=== PATIENT | male | born 1980 | race Hispanic/Latino ===

== ENCOUNTER 2021-04-29 17:42 | Emergency (ER) | payer SELFPAY ==
[2021-04-29 18:35] LABS: Absolute Lymphocytes (CBC) 1.1 K/uL (0.7-4.9); Basophils % 0.4 % (0-1.3); Lymphocytes % 12.7 % (15.3-44.8); MPV 8.7 fL (7.6-11.3); RBC Red Blood Cell Count 5.35 M/uL (4.33-5.43)
[2021-04-29 18:36] LABS: Protime INR 1.08
[2021-04-29 18:46] LABS: ALT/SGPT 65 U/L (12-78); AST/SGOT 26 U/L (15-37); Albumin 4.4 g/dL (3.4-5.0); Alkaline Phosphatase 121 U/L (45-117); BUN Blood Urea Nitrogen 19 mg/dL (7-18); Bicarbonate 28 mmol/L (21-32); Bilirubin Direct 0.3 mg/dL (0-0.2); Bilirubin Total 0.9 mg/dL (0.2-1.0); Glucose Level 111 mg/dL (74-106); Magnesium 2.5 mg/dL (1.8-2.4); NT PRO-BNP 14 pg/mL (<125); Potassium 3.7 mmol/L (3.5-5.1); Protein, Total 8.6 g/dL (6.4-8.2); Sodium Level 141 mmol/L (136-145); Troponin (Emerg Dept Use Only) < 0.02 ng/mL (0.0-0.045)
[2021-04-29] MEDS ORDERED: NA CHLORIDE 0.9% 1,000 ML ONE ×2 (18:56→20:28)
[2021-04-29] MEDS ORDERED: LORazepam 2 MG/ML VIAL ONE (18:56)
--- NOTE | 2021-04-29 19:15 | RAD REPORT ---
EXAM DESCRIPTION: CT - Head Brain Wo Cont - 04/29/2021 6:46 pm CLINICAL HISTORY: DIZZINESS COMPARISON: No comparisons TECHNIQUE: Axial 5 mm thick images of the head were obtained without IV contrast. All CT scans are performed using dose optimization technique as appropriate and may include automated exposure control or mA/KV adjustment according to patient size. FINDINGS: No intracranial hemorrhage, mass, edema or shift of mid-line structures. No acute infarcti on changes seen. No abnormal extra-axial fluid collections. Ventricles are normal. Mastoid air cells and visualized portions of the paranasal sinuses are clear. No acute bony findings. IMPRESSION: Negative non-contrast CT head examination.
--- NOTE | 2021-04-29 19:33 | RAD REPORT ---
EXAM DESCRIPTION: RAD - Chest Single View - 04/29/2021 7:11 pm CLINICAL HISTORY: CHEST PAIN COMPARISON: None TECHNIQUE: AP portable chest image was obtained 04/29/2021 7:11 pm . FINDINGS: Lungs are clear. Heart and vasculature are normal. No measurable pleural effusion and no p neumothorax. No acute bony abnormality seen. No acute aortic findings suspected. IMPRESSION: No acute cardiopulmonary process.
[2021-04-29] MEDS ORDERED: ASPIRIN 81 MG CHEWABLE TABLET ONE (21:48)
[2021-04-29 22:02] LABS: Barbiturates NEGATIVE (NEGATIVE); Benzodiazepines NEGATIVE (NEGATIVE); Cocaine POSITIVE (NEGATIVE); METHAMPHETAM POSITIVE (NEGATIVE); Methadone NEGATIVE (NEGATIVE); Opiates NEGATIVE (NEGATIVE); Phencyclidine NEGATIVE (NEGATIVE); THC Cannibis NEGATIVE (NEGATIVE)
--- NOTE | 2021-04-29 22:24 | EDPHYS ---
Physician Documentation [facility] Name: Adeel Ramirez Age: 41 yrs Sex: Male : 1980 Arrival Date: 04/29/2021 Time: 17:46 Bed 20 Private MD: ED Physician Huy Bullock HPI: 04/29 18:15 This 41 yrs old Male presents to ER via Ambulatory with complaints of cp Numbness, Dizziness, Blurred Vision, Breathing Difficulty. 18:15 The patient or guardian reports chest pain that is located primarily in the anterior cp chest wall, left. 18:15 Onset: 2 hour(s) ago, and improved just prior to arrival. The pain does not radiate. cp Associated signs and symptoms: Pertinent positives: diaphoresis, dizziness, shortness of breath, left hand tingling, Pertinent negatives: abdominal pain, lower extremity pain, lower extremity swelling, vomiting. The chest pain is described as a pressure. Duration: The patient or guardian reports a single episode, that is now resolved. Patient admits to using cocaine 3 days ago. Historical: - Allergies: 18:01 No Known Allergies; ca1 - Home Meds: 18:01 None [Active]; ca1 - PMHx: 18:01 None; ca1 - PSHx: 18:01 None; ca1 - Immunization history:: Client reports having NOT received the Covid vaccine. - Social history:: Smoking status: Patient reports the use of cigarette tobacco products, smokes one-half pack cigarettes per day. ROS: 18:20 Constitutional: Negative for body aches, chills, fever, poor PO intake. cp 18:20 Eyes: Negative for injury, pain, redness, and discharge. cp 18:20 ENT: Negative for ear pain, sore throat, difficulty swallowing, difficulty handling secretions. 18:20 Cardiovascular: Positive for chest pain, palpitations, Negative for edema. 18:20 Respiratory: Positive for shortness of breath, Negative for cough, wheezing. 18:20 Abdomen/GI: Negative for abdominal pain, nausea, vomiting, and diarrhea, black/tarry stool, rectal bleeding. 18:20 Back: Negative for pain at rest, pain with movement. 18:20 Neuro: Positive for dizziness, numbness, tingling, of the left hand and left foot, Negative for altered mental status, headache, syncope, weakness. 18:20 All other systems are negative. Exam: 18:05 ECG was reviewed by the Attending Physician. cp 18:25 Constitutional: The patient appears in no acute distress, alert, awake, cp non-diaphoretic, non-toxic, well developed, well nourished. 18:25 Head/Face: Normocephalic, atraumatic. cp 18:25 Eyes: Periorbital structures: appear normal, Pupils: equal, round, and reactive to light and accomodation, Extraocular movements: intact throughout, Conjunctiva: normal, no exudate, no injection, Sclera: no appreciated abnormality, Lids and lashes: appear normal, bilaterally. 18:25 ENT: External ear(s): are unremarkable, Nose: is normal, Mouth: Lips: moist, Oral mucosa: moist, Posterior pharynx: Airway: no evidence of obstruction, patent. 18:25 Neck: ROM/movement: is normal, is supple, without pain, no range of motions limitations. 18:25 Chest/axilla: Inspection: normal, Palpation: is normal, no crepitus, no tenderness. 18:25 Cardiovascular: Rate: tachycardic, Rhythm: regular, Heart sounds: murmur, not appreciated, Edema: is not appreciated, JVD: is not appreciated. 18:25 Respiratory: the patient does not display signs of respiratory distress, Respirations: normal, no use of accessory muscles, no retractions, labored breathing, is not present, Breath sounds: are clear throughout, no decreased breath sounds, no stridor, no wheezing. 18:25 Abdomen/GI: Inspection: abdomen appears normal, Palpation: abdomen is soft and non-tender, in all quadrants. 18:25 Neuro: Orientation: to person, place \T\ time. Mentation: is normal, Motor: moves all fours, strength is normal, Sensation: tingling, that is mild, of the left hand and left foot. Vital Signs: 17:57 BP 143 / 103; Pulse 132; Resp 20 S; Temp 98.3(TE); Pulse Ox 100% on R/A; Weight 72.57 ca1 kg (R); Height 5 ft. 5 in. (165.10 cm) (R); Pain 8/10; 18:44 BP 158 / 116; Pulse 116; Resp 24; Pulse Ox 99% ; bp 22:52 BP 148 / 78; Pulse 99; Resp 16; Pulse Ox 99% on R/A; jm8 17:57 Body Mass Index 26.63 (72.57 kg, 165.10 cm) ca1 MDM: 18:12 Patient medically screened. cp 18:30 Differential diagnosis: abnormal EKG, acute myocardial infarction, acute pericarditis, cp anxiety, chest wall pain, pleurisy, pneumonia, pneumothorax, pulmonary embolus, stable angina, unstable angina. 22:20 The patient was given aspirin in the Emergency Department. cp 22:20 Data reviewed: vital signs, nurses notes, lab test result(s), EKG, radiologic studies, cp plain films. Test interpretation: by ED physician or midlevel provider: ECG, plain radiologic studies. ED course: VSS. EKG negative for STEMI, initial and repeat troponin negative. Will discharge to home for continued monitoring. 04/29 18:07 Order name: Basic Metabolic Panel; Complete Time: 18:49 ca1 04/29 18:49 Interpretation: Normal except: GLUC 111; BUN 19; GFR 69. cp 04/29 18:07 Order name: CBC with Diff; Complete Time: 18:49 ca1 04/29 19:50 Interpretation: Normal except: NAREN% 81.1; LYM% 12.7. cp 04/29 18:07 Order name: LFT's; Complete Time: 18:49 ca1 04/29 22:18 Interpretation: Normal except: ALK 121; BILID 0.3; TP 8.6; GLOB 4.2; A/G 1.0. cp 04/29 18:07 Order name: Magnesium; Complete Time: 18:49 ca1 04/29 18:07 Order name: NT PRO-BNP; Complete Time: 18:49 ca1 04/29 18:07 Order name: PT-INR; Complete Time: 19:50 ca1 04/29 18:07 Order name: Troponin (emerg Dept Use Only); Complete Time: 18:49 ca1 04/29 18:07 Order name: XRAY Chest (1 view); Complete Time: 19:50 ca1 04/29 18:18 Order name: UDS cp 04/29 18:19 Order name: Urine Drug Screen; Complete Time: 22:18 EDMS 04/29 22:18 Interpretation: Normal except: SOFIA POSITIVE; METHAMPHETAMINE POSITIVE. cp 04/29 18:21 Order name: CT Head Brain wo Cont; Complete Time: 19:50 cp 04/29 21:12 Order name: Troponin I; Complete Time: 22:18 cp 04/29 18:07 Order name: EKG; Complete Time: 18:08 ca1 04/29 18:07 Order name: Cardiac monitoring; Complete Time: 18:08 ca1 04/29 18:07 Order name: EKG - Nurse/Tech; Complete Time: 18:07 ca1 04/29 18:07 Order name: IV Saline Lock; Complete Time: 18:08 ca1 04/29 18:07 Order name: Labs collected and sent; Complete Time: 18:08 ca1 04/29 18:07 Order name: O2 Per Protocol; Complete Time: 18:07 ca1 04/29 18:07 Order name: O2 Sat Monitoring; Complete Time: 18:07 ca1 EC:05 Rate is 133 beats/min. Rhythm is regular. ID interval is normal. QRS interval is cp normal. QT interval is normal. T waves are Inverted in leads III, aVR. Interpreted by me. Reviewed by me. Administered Medications: 18:30 Drug: NS 0.9% 1000 ml Route: IV; Rate: 1 bolus; Site: right antecubital; bp 20:10 Follow up: IV Status: Completed infusion [facility] 22:53 Follow up: IV Status: Completed infusion [facility] 18:30 Drug: Ativan (LORazepam) 0.5 mg Route: IVP; Site: right antecubital; bp 18:48 Follow up: Response: No adverse reaction bp 20:10 Drug: NS 0.9% 1000 ml Route: IV; Rate: 1 bolus; Site: right antecubital; jm8 22:53 Follow up: IV Status: Completed infusion 8 21:32 Drug: Aspirin Chewable Tablet 324 mg Route: PO; jm8 22:52 Follow up: Response: No adverse reaction 8 Disposition: 04/30 06:59 Co-signature as Attending Physician, Huy uBllock MD. rn Disposition Summary: 04/29/21 22:23 Discharge Ordered Location: Home cp Problem: new cp Symptoms: have improved cp Condition: Stable cp Diagnosis - Cocaine abuse cp - Adverse effect of amphetamines cp Followup: cp - With: Private Physician - When: 1 - 2 days - Reason: Worsening of condition Discharge Instructions: - Discharge Summary Sheet cp - Cocaine Use Disorder cp - Methamphetamines Use Disorder cp - Aspirin and Your Heart cp Forms: - Medication Reconciliation Form cp - Thank You Letter cp - Antibiotic Education cp - Prescription Opioid Use cp Signatures: Dispatcher [employer] EDHuy Storey MD MD rn Randolph Andrews PA PA cp Gael Hoff, RN RN bp Nataliya Torres RN RN [facility] Max Cho RN RN jm8
--- NOTE | 2021-04-29 22:24 | ER ---
Nurse's Notes [facility] Name: Adeel Ramirez Age: 41 yrs Sex: Male : 1980 Arrival Date: 04/29/2021 Time: 17:46 Bed 20 Private MD: Diagnosis: Cocaine abuse;Adverse effect of amphetamines Presentation: 04/29 17:57 Chief complaint: Patient states: Pt appears anxious. Numbness on L leg and L arm ca1 started at 1030 this morning. Still feels numb a little bit. 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 VAN negative. No slurring of speech. No facial droop. Coronavirus screen: Client denies travel out of the [place] in the last 14 days. shortness of breath, Client presents with at least one sign or symptom that may indicate coronavirus-19. Standard/surgical mask placed on the client. Provider contacted for isolation considerations. Ebola Screen: Patient negative for fever greater than or equal to 101.5 degrees Fahrenheit, and additional compatible Ebola Virus Disease symptoms Patient denies exposure to infectious person. Patient denies travel to an Ebola-affected area in the 21 days before illness onset. No symptoms or risks identified at this time. Initial Sepsis Screen: Does the patient meet any 2 criteria? No. Patient's initial sepsis screen is negative. Does the patient have a suspected source of infection? No. Patient's initial sepsis screen is negative. Risk Assessment: Do you want to hurt yourself or someone else? Patient reports no desire to harm self or others. Onset of symptoms was April 29, 2021. 17:57 Method Of Arrival: Ambulatory ca1 17:57 Acuity: KEMI 2 ca1 Triage Assessment: 18:40 General: Appears in no apparent distress. comfortable, Behavior is cooperative, bp appropriate for age, anxious. Pain: Denies pain. EENT: No deficits noted. Neuro: Reports dizziness, numbness. Cardiovascular: Rhythm is sinus tachycardia. Respiratory: Reports shortness of breath Onset: The symptoms/episode began/occurred at an unknown time. the patient reports symptoms have resolved. GI: : No signs and/or symptoms were reported regarding the genitourinary system. Derm: No deficits noted. Musculoskeletal: No signs and/or symptoms reported regarding the musculoskeletal system. Historical: - Allergies: 18:01 No Known Allergies; ca1 - Home Meds: 18:01 None [Active]; ca1 - PMHx: 18:01 None; ca1 - PSHx: 18:01 None; ca1 - Immunization history:: Client reports having NOT received the Covid vaccine. - Social history:: Smoking status: Patient reports the use of cigarette tobacco products, smokes one-half pack cigarettes per day. Screenin:30 Abuse screen: Denies threats or abuse. Denies injuries from another. Nutritional bp screening: No deficits noted. Tuberculosis screening: No symptoms or risk factors identified. Fall Risk None identified. Assessment: 18:40 Reassessment: PT TO CT. bp 20:00 Reassessment: Patient appears in no apparent distress at this time. jm8 22:00 Reassessment: Patient appears in no apparent distress at this time. No changes from jm8 previously documented assessment. Patient and/or family updated on plan of care and expected duration. Pain level reassessed. 22:51 Respiratory: Airway is patent Respiratory effort is even, unlabored, Breath sounds are jm8 clear. Vital Signs: 17:57 BP 143 / 103; Pulse 132; Resp 20 S; Temp 98.3(TE); Pulse Ox 100% on R/A; Weight 72.57 ca1 kg (R); Height 5 ft. 5 in. (165.10 cm) (R); Pain 8/10; 18:44 BP 158 / 116; Pulse 116; Resp 24; Pulse Ox 99% ; bp 22:52 BP 148 / 78; Pulse 99; Resp 16; Pulse Ox 99% on R/A; jm8 17:57 Body Mass Index 26.63 (72.57 kg, 165.10 cm) ca1 ED Course: 17:46 Patient arrived in ED. rg4 18:00 Triage completed. ca1 18:01 Arm band placed on right wrist. ca1 18:07 Randolph Andrews PA is PHCP. cp 18:07 Huy Bullock MD is Attending Physician. cp 18:08 Gael Hoff, LUPE is Primary Nurse. bp 18:08 Initial lab(s) drawn, by me, sent to lab. Inserted saline lock: 20 gauge in right ca1 antecubital area, using aseptic technique. Blood collected. 18:22 TRANSLATED FOR PROVIDER AND PATIENT CZECH / ICELANDIC. [facility] 18:24 Patient has correct armband on for positive identification. Bed in low position. Call mh5 light in reach. Side rails up X 1. Adult w/ patient. environmental monitoring technician on. Pulse ox on. NIBP on. 18:46 CT Head Brain wo Cont In Process Unspecified. EDMS 19:01 Primary Nurse role handed off by Gael Hoff, RN mw2 19:08 Gael Hoff, RN is Primary Nurse. bp 19:11 XRAY Chest (1 view) In Process Unspecified. EDMS 22:52 IV discontinued, intact. jm8 Administered Medications: 18:30 Drug: NS 0.9% 1000 ml Route: IV; Rate: 1 bolus; Site: right antecubital; bp 20:10 Follow up: IV Status: Completed infusion jm8 22:53 Follow up: IV Status: Completed infusion jm8 18:30 Drug: Ativan (LORazepam) 0.5 mg Route: IVP; Site: right antecubital; bp 18:48 Follow up: Response: No adverse reaction bp 20:10 Drug: NS 0.9% 1000 ml Route: IV; Rate: 1 bolus; Site: right antecubital; jm8 22:53 Follow up: IV Status: Completed infusion jm8 21:32 Drug: Aspirin Chewable Tablet 324 mg Route: PO; jm8 22:52 Follow up: Response: No adverse reaction [facility] Outcome: 22:23 Discharge ordered by . cp 22:51 Discharged to home ambulatory. jm 22:51 Condition: good 22:51 Discharge instructions given to patient, Instructed on discharge instructions, follow up and referral plans. medication usage, Demonstrated understanding of instructions, follow-up care, medications. 22:53 Patient left the ED. jm8 Signatures: Dispatcher [employer] EDMO Randolph Andrews PA PA cp Garcia, Rubi rg4 Martinez, Maria 5 Gael Hoff, RN RN bp Beltran Garcia mw2 Nataliya Torres RN RN Max Medina RN RN jm8 Corrections: (The following items were deleted from the chart) 18:01 17:57 Chief complaint: Patient states: Pt appears anxious. Numbness on L leg and L arm ca1 started at 1030 this morning. Still feels numb a little bit. 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 ca1
[2021-04-29 23:20] VITALS: TEMP 98.3
[2021-04-29 23:21] VITALS: O2SAT 99
[2021-04-29 23:23] VITALS: BP 148/78
--- NOTE | 2021-04-30 19:17 | EKG ---
Test Date: 2021-04-29 Test Time: 17:55:11 Button Breaker: MIKAEL MEASUREMENT RESULTS: Intervals: Rate: 133 [place]: 144 QRSD: 90 QT: 296 QTc: 440 [place]: P: 61 [place]: 144 QRS: 109 T: 26 INTERPRETIVE STATEMENTS: Sinus tachycardia Rightward axis Possible Inferior infarct, age undetermined Cannot rule out Anterior infarct, age undetermined Abnormal ECG No previous ECG available for comparison Electronically Signed On 04-30-21 19:13:47 CDT by Damian Short
== END 2021-04-29 22:53 | disposition home or self-care (01) ==
LOC: ER 17:42
DX: F14.10 Cocaine abuse, uncomplicated (principal); T43.625A Adverse effect of amphetamines, initial encounter; F17.210 Nicotine dependence, cigarettes, uncomplicated
CPT/HCPCS: 36415; 70450; 71045; 80048; 80076; 80307; 83735; 83880; 84484; 85025; 85610; 93005; 96361; 96374; 99284; J7030